=== PATIENT | male | born 1995 | race Caucasian/White ===

== ENCOUNTER 2017-03-09 12:35 | Emergency (ER) | payer OTHER ==
[2017-03-09 13:51] LABS: HEMOGLOBIN 17.9 gm/dl (14.0-17.5); RED BLOOD COUNT 5.83 M/UL (4.20-5.50); WHITE BLOOD COUNT 5.7 K/UL (4.5-11.0)
[2017-03-09 14:08] LABS: BUN/CREATININE RATIO 13 (0-10)
== END 2017-03-09 15:12 | disposition home or self-care (01) ==
LOC: ER1 12:35
PROVIDERS: Emergency Medicine
DX: E86.0 Dehydration (principal); F19.10 Other psychoactive substance abuse, uncomplicated; R53.1 Weakness
CPT/HCPCS: 36415; 71010; 80053; 80307; 81001; 82550; 82553; 83874; 84484; 85025; 87086; 93005; 96360; 96361; 99284